=== PATIENT | female | born 1960 | race Caucasian/White ===

== ENCOUNTER 2023-05-09 05:56 | Emergency (ER) | payer OTHER, SELFPAY ==
--- NOTE | ~2023-05-09 | MR_ITS ---
MR BRAIN WITHOUT CONTRAST CLINICAL INFORMATION: Right arm numbness. COMPARISON: CTA head and neck 05/09/2023. TECHNIQUE: MRI of the brain was obtained using routine sequences without contrast. FINDINGS: There is no hydrocephalus, extra-axial surface collection, or herniation. There is mild chronic microangiopathy.The major flow voids at the skull base are preserved. There is no acute infarct on diffusion-weighted imaging. There is no intracranial hemorrhage on the gradient recalled echo acquisition. The midline structures are normal. The cerebellar tonsils are normally positioned. The cerebellum and brainstem are normal. The craniocervical junction is normal. Osseous marrow signal intensity is homogenous. The visualized soft tissues are unremarkable. MR/MR head/brain wo con IMPRESSION: No acute intracranial findings. No acute infarcts. There is mild chronic microangiopathy.
--- NOTE | ~2023-05-09 | CT_ITS ---
CT ANGIOGRAM NECK WITH CONTRAST CT ANGIOGRAM BRAIN WITH CONTRAST CLINICAL INFORMATION: Right arm numbness. COMPARISON: None available. TECHNIQUE: Test bolus sequences followed by intravenous administration 70 mL of Omnipaque 350. Helical imaging was performed in the axial plane from the thoracic inlet to the skull vertex. Delayed postcontrast imaging of the head was also performed. The data was processed at the instrument technologist workstation for generation of MIP sequences. Angled MIPs and volume rendered reformatted images were also generated at an offline 3D workstation under concurrent supervision. Stenoses are assessed in accordance with NASCET criteria unless otherwise indicated. This CT examination was performed using dose optimization techniques as appropriate, variously including the following: *Automated exposure control *Adjustment of mA and/or kV according to patient size (this includes techniques or standardized protocols for targeted exams where dose is matched to indication/reason for exam; i.e. extremities or head) *Use of iterative reconstruction technique FINDINGS: BRAIN: [There is no intracranial hemorrhage, hydrocephalus, extra-axial surface collection, midline shift, or other herniation pattern. Lane to white matter differentiation is diffusely maintained without evidence of an evolved acute territorial infarct. The basilar cisterns are preserved. No significant soft tissue abnormality. No acute osseous abnormality. There is moderate mucosal thickening within the inferior right maxillary sinus and there is significant periapical lucency surrounding the roots of the right second maxillary molar with overlying dehiscence of the right maxillary sinus floor predisposing to odontogenic sinusitis. CERVICAL SOFT TISSUES AND LUNG APICES: Multilevel cervical spondylosis, greatest at C5-C6 and C6-C7. NECK CTA: [There is a classic 3 vessel configuration of the aortic arch. Proximal arch vessels are non-stenotic. The vertebral arteries are codominant. No significant ostial stenosis is visualized on either side. Both vertebral arteries are widely patent throughout their extracranial cervical course. Both common and internal carotid arteries are normal in course and caliber.] BRAIN CTA: [There is normal opacification of major intracranial arteries. No focal flow-limiting stenosis nor discrete proximal large artery occlusion. No aneurysm. Timing of the contrast bolus allows assessment of the major dural venous sinuses, which all opacify normally] CT/CT angio head neck IMPRESSION: - No acute intracranial findings. - No acute arterial occlusions and no significant arterial stenoses within the head or neck. - Multilevel cervical spondylosis, greatest at C5-C6 and C6-C7. - There is moderate mucosal thickening within the inferior right maxillary sinus and there is significant periapical lucency surrounding the roots of the right second maxillary molar with overlying dehiscence of the right maxillary sinus floor predisposing to odontogenic sinusitis.
[2023-05-09 06:01] VITALS: BP 180/97; PULSE 77; RESP 14; TEMP 35.6; O2SAT 98; BMI 35.5
--- NOTE | 2023-05-09 06:14 | ECG_ITS ---
Test Reason : RIGHT SIDE WEAKNESS Blood Pressure : / mmHG Vent. Rate : 074 BPM Atrial Rate : 074 BPM P-R Int : 184 ms QRS Dur : 090 ms QT Int : 404 ms P-R-T Axes : 034 -10 -02 degrees QTc Int : 448 ms Normal sinus rhythm Moderate voltage criteria for LVH, may be normal variant ( R in aVL , Brad product ) Cannot rule out Anterior infarct , age undetermined Abnormal ECG When compared with ECG of 21-JUL-2009 07:13, No significant change was found Referred By: Generic ED Physician Electronically Signed By:SKYLER WANG MD
[2023-05-09 06:33] LABS: MANUAL DIFF FLAG NO
[2023-05-09 06:34] LABS: Basophils Absolute Auto 0.1 X10*3/uL (0.0-0.2); Basophils Percent Auto 1.7 % (0-2); Eosinophils Absolute Auto 0.2 X10*3/uL (0.0-0.4); Eosinophils Percent Auto 3.7 % (0-4); Hematocrit 42.3 % (37.0-47.0); Hemoglobin 14.7 g/dl (12.0-16.0); Lymphocytes Absolute Auto 1.6 X10*3/uL (1.2-4.9); Lymphocytes Percent Auto 38.8 % (20-40); Mean Corpuscular HGB Conc 34.8 g/dl (31.0-35.0); Mean Corpuscular Hemoglobin 33.8 pg (27.0-33.0); Mean Corpuscular Volume 97.2 fL (80.0-98.0); Mean Platelet Volume 10.8 fL (9.4-12.3); Monocytes Absolute Auto 0.6 X10*3/uL (0.1-1.2); Monocytes Percent Auto 13.8 % (2-11); Neutrophils Absolute Auto 1.7 x10*3/uL (2.0-8.3); Platelet Count 182 X10*3/uL (160-400); Red Blood Count 4.35 X10*6/uL (4.20-5.50); Red Cell Distribution Width 12.2 % (11.0-16.0); White Blood Count 4.1 X10*3/uL (4.8-10.8)
[2023-05-09 06:39] LABS: INTERNATIONAL NORM RATIO 0.9 (0.9-1.1); Prothrombin Time 10.6 SEC (11.1-13.3)
[2023-05-09 06:56] LABS: Alanine Aminotransferase 23 U/L (0-31); Albumin Level 4.1 g/dL (3.5-5.0); Alkaline Phosphatase 77 U/L (39-117); Anion Gap 12 (12-20); Aspartate Amino Transferase 19 U/L (5-31); Bilirubin Total 0.4 mg/dL (0.0-1.0); Blood Urea Nitrogen 9 mg/dL (9-16); Calcium 8.8 mg/dL (8.4-10.2); Carbon Dioxide 23 mmol/L (22-29); Chloride 110 mmol/L (96-108); Creatinine Clr Calc Pharmacy 103.8; Estimated Glomerular Filt Rate > 60; Glucose Random 106 mg/dL (60-115); Potassium 3.4 mmol/L (3.3-5.1); Sodium 142 mmol/L (135-145)
[2023-05-09 07:02] VITALS: PULSE 72; RESP 18; O2SAT 97
[2023-05-09 07:04] VITALS: BP 166/98
[2023-05-09 07:05] LABS: Troponin-I High Sensitivity < 2.7 ng/L (<3.5-17.0)
--- NOTE | 2023-05-09 07:10 | ED_ITS ---
HPI - General Adult General Chief complaint: General Medical Stated complaint: Left side numbness Time Seen by Provider: 05/09/23 07:04 Source: patient Mode of arrival: ambulatory Limitations: no limitations History of Present Illness HPI narrative: 62 years old female with history of hypertension presented to the emergency department complaining of right arm paresthesia since last night. She denies any weakness of the arm any speech problem. She is ambulatory to the emergency department Onset (ago): day(s) (1) Location: upper extremity (Right arm) Severity: mild Relieving factors: none Exacerbating factors: none Associated symptoms: denies other symptoms Related Data Allergies Allergy/AdvReac Type Severity Reaction Status Date / Time rofecoxib [From Vioxx] Allergy Unknown UNKNOWN Verified 05/09/23 06:01 Review of Systems 2 Eyes: Eyes: Reports no additional eye complaints ENT: Reports system reviewed and no additional complaints, except as documented Gastrointestinal: Gastrointestinal: Reports no additional gastrointestinal complaints [facility] Past Medical History Attestation statement: The following information was validated with the patient. [facility] Narrative: Hypertension Social History Social History Advance Directives: No Advance Directives Information Provided: No Physical Exam ED Vital Signs: Vital Signs - 24 hr 05/09/23 06:01 05/09/23 07:02 05/09/23 07:04 Temperature 96.1 F L Pulse Rate 77 72 Respiratory Rate 14 18 Blood Pressure 180/97 H 166/98 H Pulse Oximetry 98 97 Oxygen Delivery Method Room Air Room Air 05/09/23 10:41 Temperature 97.6 F Pulse Rate 80 Respiratory Rate 20 Blood Pressure 186/72 H Pulse Oximetry 97 Oxygen Delivery Method Room Air BMI result Body Mass Index 35.5 Const General: cooperative Orientation/consciousness: patient oriented x3 HENMT Head: Yes normal to inspection General nose exam: Normal external nose present Face and sinus: Yes normal facial exam Mouth: Normal oral and palatal mucosa present Throat: Yes posterior oropharynx normal Neck Neck: Yes normal visual inspection Chest Chest palpation & inspection: normal inspection of the chest Resp Effort & Inspection: normal respiratory effort Auscultation: clear to auscultation bilaterally Cardio Jugular venous distension: no JVD Rate: regular rate Rhythm: regular rhythm GI Inspection: Yes normal to inspection Palpation (GI): Soft to palpation, not firm and nontender Skin General skin exam: no rashes or lesions noted Neuro General: patient oriented x3 Cranial nerves: Yes CN's II-XII intact bilaterally Gait exam (Neuro): Normal gait present Motor exam (neuro): 5/5 motor strength present throughout Coordination: [id number] test normal Romberg Test: Negative Course Reevaluation(s) Reevaluation #1: WORKUP COMPLETED PATIENT HAS A NORMAL MRI OF THE BRAIN ESSENTIALLY NORMAL CT ANGIOGRAPHY OF THE HEAD AND NECK, ELECTROCARDIOGRAM WAS NORMAL TROPONIN NORMAL AFTER 1 DAY OF SYMPTOMS. I THINK SHE CAN BE DISCHARGED HOME Medications Administered Discontinued Medications Generic Name Dose Route Start Last Admin Trade Name Freq PRN Reason Stop Dose Admin Iohexol 100 ml 05/09/23 08:54 05/09/23 08:54 Iohexol 350 Mg/Ml 100 Ml Infus..Btl IV 05/09/23 08:55 70 ml ONCE ONE Administration Medical Decision Making Medical Decision Making [facility] Narrative: Patient presented to the emergency department complaining of right upper extremity paresthesia will obtain imaging electrocardiogram I sensitive troponin Differential Diagnosis Differential Diagnoses: The differential diagnosis associated with the presentation includes Broad differential diagnosis which include thalamic CVA/acute coronary syndrome Admission/Observation Consideration of admission/observation: Escalation of care including admission/observation considered Lab Data [facility] Lab Attestation statement: I reviewed the patient's lab results. 05/09/23 06:29 05/09/23 06:29 Labs: Lab Results 05/09/23 Range/Units 06:29 WBC 4.1 L (4.8-10.8) X10*3/uL RBC 4.35 (4.20-5.50) X10*6/uL Hgb 14.7 (12.0-16.0) g/dl Hct 42.3 (37.0-47.0) % MCV 97.2 (80.0-98.0) fL MCH 33.8 H (27.0-33.0) pg MCHC 34.8 (31.0-35.0) g/dl RDW 12.2 (11.0-16.0) % Plt Count 182 (160-400) X10*3/uL MPV 10.8 (9.4-12.3) fL Immature Gran % (Auto) 0.0 (0.0-0.4) % Neut % (Auto) 42.0 L (45-73) % Lymph % (Auto) 38.8 (20-40) % [place] % (Auto) 13.8 H (2-11) % Eos % (Auto) 3.7 (0-4) % Baso % (Auto) 1.7 (0-2) % Lymph # (Auto) 1.6 (1.2-4.9) X10*3/uL [place] # (Auto) 0.6 (0.1-1.2) X10*3/uL Eos # (Auto) 0.2 (0.0-0.4) X10*3/uL Baso # (Auto) 0.1 (0.0-0.2) X10*3/uL Abs Immat Gran (auto) 0.00 (0.00-0.03) X10*3/uL Absolute Neuts (auto) 1.7 L (2.0-8.3) x10*3/uL Absolute Nucleated RBC 0.000 (0.0-0.012) X10*3/uL Nucleated RBC % (auto) 0.0 (0.0-0.2) /100WBC PT 10.6 L (11.1-13.3) SEC INR 0.9 (0.9-1.1) Sodium 142 (135-145) mmol/L Potassium 3.4 (3.3-5.1) mmol/L Chloride 110 H (96-108) mmol/L Carbon Dioxide 23 (22-29) mmol/L Anion Gap 12 (12-20) BUN 9 (9-16) mg/dL Creatinine 0.67 (0.5-1.4) mg/dL Estim Creat Clear Calc 103.8 Estimated GFR > 60 Random Glucose 106 (60-115) mg/dL Calcium 8.8 (8.4-10.2) mg/dL Total Bilirubin 0.4 (0.0-1.0) mg/dL AST 19 (5-31) U/L ALT 23 (0-31) U/L Alkaline Phosphatase 77 (39-117) U/L Troponin I High Sens < 2.7 (<3.5-17.0) ng/L Total Protein 7.0 (6.5-8.0) g/dL Albumin 4.1 (3.5-5.0) g/dL Independent Interpretation I performed an independent interpretation of an: EKG and CT Scan Interpretation: ekg no ischemia Radiology Impression Discussion of test interpretation with radiology: I have reviewed the radiologist's reading. Chronic Conditions Patient?s care impacted by: Hypertension Discharge Plan Discharge Clinical Impression: Arm paresthesia, right Patient Disposition: Home, Self-Care Instructions: Paresthesia (ED) Additional Instructions: PLEASE FOLLOW-UP WITH YOUR PRIMARY CARE PHYSICIAN CALL TODAY AND MAKE AN APPOINTMENT, RETURN TO THE EMERGENCY ROOM IF YOU WORSE. Referrals: Se Díaz MD [Primary Care Provider] - 2 days Interventions: ED Discharge Assessment Last Done: 05/09/23 11:27 Discharge Date/Time: 05/09/23 11:42
--- NOTE | 2023-05-09 08:51 | PC.NURSE ---
Alert and oriented, returned from CT, mri screening form completed and faxed to MRI. Patient ambulated with steady gait to bathroom. Continues to reports tingling in right arm
[2023-05-09] MEDS: iohexoL 350 MG/ML 100 ML INFUS..BTL IV (08:54)
--- NOTE | 2023-05-09 09:51 | PC.NURSE ---
Patient at MRI
[2023-05-09 10:41] VITALS: BP 186/72; PULSE 80; RESP 20; TEMP 36.4; O2SAT 97
== END 2023-05-09 11:42 | disposition home or self-care (01) ==
PROVIDERS: Emergency Provider Emergency Medicine; PCP Internal Medicine
DX: R20.2 Paresthesia of skin (principal); I10 Essential (primary) hypertension; R79.1 Abnormal coagulation profile
CPT/HCPCS: 36415; 70496; 70498; 70551; 80053; 84484; 85025; 85610; 93005; 99284; 99285; Q9967

== ENCOUNTER → 2023-05-09 06:14 | Outpatient (BNV) | payer OTHER, SELFPAY | PROVIDERS: Emergency Provider Emergency Medicine; PCP Internal Medicine; Visit Provider Internal Medicine Cardiovascular Disease | DX: R94.31 Abnormal electrocardiogram [ECG] [EKG] (principal) | CPT/HCPCS: 93010 ==